=== PATIENT | female | born 1975 | race Two or more races ===

== ENCOUNTER 2016-12-16 12:05 | Emergency (ER) | payer OTHER ==
[~2016-12-16 12:05] MED LIST: NO HOME MEDICATION XX
[2016-12-16] MEDS ORDERED: NORCO 5-325 TA1 EACH PO (17:22)
== END 2016-12-16 17:39 ==
LOC: EDMED 12:05
DX: S83.91XA Sprain of unspecified site of right knee, initial encounter (principal); M25.551 Pain in right hip; W10.9XXA Fall (on) (from) unspecified stairs and steps, initial encounter; Y92.019 Unspecified place in single-family (private) house as the place of occurrence of the external cause